=== PATIENT | female | born 1985 | race Caucasian/White ===

== ENCOUNTER 2019-06-06 10:17 | Outpatient (CLI) | payer OTHER, SELFPAY ==
[2019-06-06 11:01] LABS: Abs Immature Grans 0.01 k/cumm (0.0-0.09); Absolute Basophil Count 0.02 k/cumm (0.0-0.2); Absolute Eosinophil Count 0.04 k/cumm (0.0-0.7); Absolute Lymphocyte Count 1.45 k/cumm (1.2-3.4); Absolute Monocyte Count 0.83 k/cumm (0.11-0.7); Absolute Neutrophil Count 4.54 k/cumm (1.2-6.7); Basophils % 0.3; Eosinophils % 0.6; HCT 39.7 % (36.0-46.0); HGB 12.8 g/dL (12.0-15.5); Immature Grans % 0.1 %; Mean Corp. HGB Concentration 32.2 g/dL (32.0-36.0); Mean Corpuscular Hemoglobin 26.1 pg (27.0-33.0); Mean Platelet Volume 8.7 fL (8.0-11.0); Platelet Count 347 x1000/uL (130-400); RBC Distribution Width 14.9 % (11.7-14.6); White Blood Cell Count 6.89 k/cumm (4.4-10.8)
[2019-06-06 11:50] LABS: BUN 13 mg/dL (7-18); CREATININE 0.74 mg/dL (0.55-1.02); Chloride 105 mmol/L (98-107); Glucose 78 mg/dL (74-106); Sodium 141 mmol/L (136-145); TSH (W/Ref FT4) 1.29 uIU/mL (0.36-3.74)
[2019-06-06 12:13] LABS: Calculated LDL 96 mg/dL; Cholesterol 170 mg/dL (<200); HDL Cholesterol 64 mg/dL (40-60); Triglyceride 53 mg/dL (<150)
== END 2019-06-06 10:37 ==
PROVIDERS: PCP Family Medicine; Visit Provider Family Medicine
DX: F41.9 Anxiety disorder, unspecified (principal); F32.9 Major depressive disorder, single episode, unspecified; G47.00 Insomnia, unspecified; Z00.00 Encounter for general adult medical examination without abnormal findings
CPT/HCPCS: 36415; 80048; 80061; 84443; 85025

== ENCOUNTER 2020-05-04 07:43 | Outpatient (CLI) | payer OTHER, SELFPAY ==
[2020-05-03 19:41] LABS: Vitamin D 25 Total 60.2 ng/ml (30-100)
== END 2020-05-04 08:03 ==
PROVIDERS: PCP Family Medicine; Visit Provider Nurse Practitioner Family
DX: R63.5 Abnormal weight gain (principal); E55.9 Vitamin D deficiency, unspecified; G47.30 Sleep apnea, unspecified; E66.09 Other obesity due to excess calories; Z68.36 Body mass index [BMI] 36.0-36.9, adult
CPT/HCPCS: 36415; 82306; 84443

== ENCOUNTER 2020-08-20 06:54 | Emergency (ER) | payer OTHER, SELFPAY ==
[2020-08-20 06:57] VITALS: BP 142/89; PULSE 89; RESP 18; TEMP 36.5; O2SAT 99
--- NOTE | 2020-08-20 06:57 | W.ED.GENAD ---
Discharge Plan Disposition Patient Disposition: HOME Condition: Good Discharge Details Clinical Impression: UTI (urinary tract infection) Primary Care Provider: Nancy Forbes ED Provider: Luis Armando Prabhakar [place] Meds and New Rx's Prescriptions: New phenazopyridine [Pyridium] 100 mg tablet 100 mg PO TID Qty: 5 RF: 0 nitrofurantoin monohyd/m-cryst [Macrobid] 100 mg capsule 100 mg PO BID Qty: 9 RF: 0 Continued phentermine 37.5 mg capsule 37.5 mg PO DAILY RF: 0 fluoxetine 20 mg capsule 20 mg PO DAILY RF: 0 topiramate 50 mg tablet 50 mg PO DAILY RF: 0 Discharge Instructions Instructions: Urinary Tract Infection in Women (ED) Additional Instructions: Take the Pyridium for management of your symptoms. Take all the Macrobid as directed. Follow-up with primary care if continued symptoms after completion of treatment. Return to ED if you develop spiking fevers, persistent vomiting, back or abdominal pain. Referrals: Nancy Forbes [Primary Care Provider] - Medical Decision Making Patient presenting with urinary symptoms including dysuria, urgency, suprapubic discomfort, hematuria. She has no systemic signs of illness. Urine has been sent. We will plan treatment garcia Pyridium and Macrobid. Follow-up with primary care next week if not improved. Return to ED for spiking fever, persistent vomiting, worsening back or abdominal pain. HPI General Mode of arrival: ambulatory. Date/Time Provider Initiated Documentation: 08/20/20 06:56. Limitations to Documentation: no limitations. Information obtained by: patient and RN notes reviewed. HPI Narrative: Patient presents to ED with urinary symptoms which started last night. She has dysuria, urgency, suprapubic discomfort, hematuria. She denies fever, back pain, vomiting. She has had UTIs in the past. Denies any pelvic pain or vaginal symptoms. Related Data Home Medications Medication Instructions Recorded Confirmed fluoxetine 20 mg PO DAILY 08/20/20 08/20/20 nitrofurantoin monohyd/m-cryst 100 mg PO BID #9 cap 08/20/20 [Macrobid] phenazopyridine [Pyridium] 100 mg PO TID #5 tab 08/20/20 phentermine 37.5 mg PO DAILY 08/20/20 08/20/20 topiramate 50 mg PO DAILY 08/20/20 08/20/20 Previous Rx's Medication Instructions Recorded nitrofurantoin monohyd/m-cryst 100 mg PO BID #9 cap 08/20/20 [Macrobid] phenazopyridine [Pyridium] 100 mg PO TID #5 tab 08/20/20 Allergies Allergy/AdvReac Type Severity Reaction Status Date / Time No Known Allergies Allergy Verified 08/20/20 07:00 Review of Systems Narrative: As documented in HPI otherwise negative as below. Const: no fever, chills, weakness Resp: no cough, SOB, pleuritic pain CV: no CP, diaphoresis, edema, syncope GI: no abdominal pain, nausea, vomiting, diarrhea Neuro: no headache, numbness, focal weakness, confusion PFSH Surgical History S/P tubal ligation Social History Smoking/Tobacco Use Status: Never Smoking risk assessment performed?: Yes Alcohol Intake: never Substance use type: does not use Do you feel safe at home: Yes Do you feel safe in your relationship?: Yes Exam Narrative Exam Narrative: Const: WDWN female in NAD. HEENT: NC/AT. Normal facial exam. Eyes: Normal conjunctiva and sclera. Neck: Supple. Trachea midline. Lungs: Normal respiratory effort. Cor: Good radial pulses. GI: Soft. NT/ND. No guarding or rebound. Back: No CVAT Neuro: A+O x 3. Normal speech, mentation, gait. Cranial nerves II - XII grossly intact. No gross motor or sensory deficit.
[2020-08-20 07:19] LABS: Bilirubin Moderate (Negative); Blood Large (Negative); Clarity Cloudy (Clear); Glucose Negative (Negative); Ketones 15 mg/dL (Negative); Leukocyte Esterase Small (Negative); Nitrite Negative (Negative); Specific Gravity >= 1.030 (1.005-1.025); pH 5.5 (5-8)
[2020-08-20] MEDS: Phenazopyridine 100 MG TAB PO (07:21)
[2020-08-20] MEDS: MacroBID 100 MG CAP PO (07:21)
[2020-08-20 07:31] LABS: Bacteria Many HPF (Negative); C & S Indicated? Yes; Casts Negative LPF (Negative); Crystals Few Calcium Oxalate HPF (Negative); Epithelial Cells Few HPF (Negative); Mucus Trace (Negative); RBC >50 HPF (0-2)
== END 2020-08-20 07:26 | disposition home or self-care (01) ==
PROVIDERS: Emergency Provider Emergency Medicine; PCP Family Medicine
DX: N39.0 Urinary tract infection, site not specified (principal); B96.20 Unspecified Escherichia coli [E. coli] as the cause of diseases classified elsewhere
CPT/HCPCS: 81025; 87077; 99283; 81003; 81015; 87086; 87186

== ENCOUNTER 2020-12-15 07:15 | Emergency (ER) | payer OTHER, SELFPAY ==
[2020-12-15 07:24] VITALS: BP 124/82; PULSE 84; RESP 16; TEMP 36.3; O2SAT 100
--- NOTE | 2020-12-15 07:25 | W.ED.GENAD ---
Discharge Plan Disposition Patient Disposition: HOME Condition: Good Discharge Details Clinical Impression: Urinary tract infection Primary Care Provider: Nancy Forbes ED Provider: David Gage Home Meds and New Rx's Prescriptions: New cephalexin 500 mg capsule 500 mg PO BID 5 Days Qty: 10 RF: 0 Continued phentermine 37.5 mg capsule 37.5 mg PO DAILY RF: 0 fluoxetine 20 mg capsule 60 mg PO DAILY RF: 0 topiramate 50 mg tablet 50 mg PO DAILY RF: 0 phenazopyridine [Pyridium] 100 mg tablet 100 mg PO TID Qty: 5 RF: 0 Discontinued nitrofurantoin monohyd/m-cryst [Macrobid] 100 mg capsule 100 mg PO BID Qty: 9 RF: 0 Discharge Instructions Instructions: Urinary Tract Infection in Women (ED) Additional Instructions: You have evidence of a urinary tract infection. Please take the antibiotic Keflex as directed. Drink plenty of fluids, and take cranberry concentrate. If you notice any worsening of your symptoms, or any new symptoms such as vomiting, diarrhea, fever, chills, shortness of breath, chest pain, numbness, weakness, or fainting , please return immediately to the emergency department for reevaluation. Please follow up with your primary care provider as soon as possible for reassessment and reevaluation. As always, it was a pleasure participating in your medical care today. Referrals: Nancy Forbes [Primary Care Provider] - Medical Decision Making This is a 35-year-old female with past medical history of urinary tract infections, and tubal ligation who presents today for evaluation of dysuria and frequency for the last 3 to 4 days. She states it feels similar to previous UTIs. She denies any fever or chills. She denies a history of kidney stones. She denies a family history of kidney stones. She denies any nausea vomiting or diarrhea, no focal abdominal pain. No other complaints at this time. Physical exam demonstrates no flank or CVA tenderness, no abdominal tenderness. Previous evaluation of her UTIs demonstrates E. coli, pansensitive. I did discuss her last treatment, when she took nitrofurantoin and she states that this did not go well with her. We will try Keflex if her urine is positive. 7:49 AM Urinalysis is positive for evidence of infection. Symptoms inconsistent with kidney stone. Will give Keflex for home use. Discussed red flags which return. I have extensively reviewed the treatment plan and discharge instructions with the patient. I have addressed all patient concerns at this time. The patient was made aware of what symptoms to monitor for that would warrant a return to the emergency department. Discussed the plan with the patient, they demonstrate verbal understanding and agreement with our assessment and plan at this time. The documentation in this chart was dictated using [email or web address] dictation software. Please excuse any dictation errors. HPI General Date/Time Provider Initiated Documentation: 12/15/20 07:17. HPI Narrative: This is a 35-year-old female with past medical history of urinary tract infections, and tubal ligation who presents today for evaluation of dysuria and frequency for the last 3 to 4 days. She states it feels similar to previous UTIs. She denies any fever or chills. She denies a history of kidney stones. She denies a family history of kidney stones. She denies any nausea vomiting or diarrhea, no focal abdominal pain. No other complaints at this time. Related Data Home Medications Medication Instructions Recorded Confirmed fluoxetine 60 mg PO DAILY 08/20/20 12/15/20 phenazopyridine [Pyridium] 100 mg PO TID #5 tab 08/20/20 12/15/20 phentermine 37.5 mg PO DAILY 08/20/20 12/15/20 topiramate 50 mg PO DAILY 08/20/20 12/15/20 cephalexin 500 mg PO BID 5 Days #10 cap 12/15/20 Previous Rx's Medication Instructions Recorded phenazopyridine [Pyridium] 100 mg PO TID #5 tab 08/20/20 cephalexin 500 mg PO BID 5 Days #10 cap 12/15/20 Allergies Allergy/AdvReac Type Severity Reaction Status Date / Time No Known Allergies Allergy Verified 08/20/20 07:00 General IHSAN: 3 Review of Systems All systems reviewed & are unremarkable except as noted in HPI and below PFSH Surgical History S/P tubal ligation Social History Smoking/Tobacco Use Status: Never Smoking risk assessment performed?: Yes Alcohol Intake: never Substance use type: does not use Do you feel safe at home: Yes Do you feel safe in your relationship?: Yes Exam Narrative Exam Narrative: 1.Const: Well-nourished, Well-developed, appearing stated age 2.Eyes: PERRL, no conjunctival injection, and symmetrical lids. 3.ENT: Atraumatic external nose and ears. Moist MM. Neck: Symmetric, trachea midline, No thyromegaly. 4.CVS: +S1/S2, No murmurs or gallops. Peripheral pulses 2+ and equal in all extremities. Brisk capillary refill in all extremities. 5.RESP: Unlabored respiratory effort. Clear to auscultation bilaterally. No wheezes rales or rhonchi 6.GI: Soft, Nontender/Nondistended, No hepatosplenomegaly. No guarding or rebound. No flank or CVA tenderness. 7.MSK: Normocephalic/Atraumatic, Extremities w/o deformity or ttp No cyanosis or clubbing, Normal movement of all extremities 8.Skin: Warm, Dry. No rashes or lesions. 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 Sensation grossly intact, no focal neurologic deficits. 10.Psych: (AAO) x3. Appropriate mood and affect
[2020-12-15 07:33] LABS: Bilirubin Small (Negative); Blood Small (Negative); Clarity Cloudy (Clear); Glucose Negative (Negative); Ketones Trace mg/dL (Negative); Leukocyte Esterase Large (Negative); Nitrite Negative (Negative); Specific Gravity >= 1.030 (1.005-1.025); Urobilinogen 0.2 EU/dL (Up TO 0.2)
[2020-12-15 07:43] LABS: WBC >50 HPF (0-5)
[2020-12-15 07:44] LABS: Bacteria Many HPF (Negative); Epithelial Cells Many HPF (Negative)
[2020-12-15 07:45] LABS: C & S Indicated? No/Sq. Contamination
[2020-12-15] MEDS: Cephalexin 500 MG CAP PO (07:51)
[2020-12-15 07:53] VITALS: BP 124/82; PULSE 84; RESP 16; TEMP 36.3; O2SAT 100
== END 2020-12-15 07:58 | disposition home or self-care (01) ==
PROVIDERS: Emergency Provider Student in an Organized Health Care Education/Training Program; PCP Family Medicine
DX: R39.0 Extravasation of urine (principal)
CPT/HCPCS: 81025; 99283; 81003; 81015